=== PATIENT | male | born 1975 | race Two or more races ===

== ENCOUNTER 2016-12-22 08:24 | Emergency (ER) | payer SELFPAY ==
[2016-12-22] MEDS ORDERED: KETOROLAC TROMETHAMINE 60 MG/2 ML VIAL ONE (08:40)
--- NOTE | 2016-12-22 09:16 | RAD ---
12/22/2016 9:12 AM CHEST - 2 VIEWS History: Rib pain without injury. Comparison: None Findings: Two views of the chest are obtained. The lungs demonstrate a small nodular focus within the left mid to lower lung, midclavicular line. This projects between the seventh and eighth posterior rib. Findings likely relate to a calcified granuloma though other entities are possible. The cardiomediastinal silhouette is unremarkable.. The osseous structures are intact.. IMPRESSION: Nodular density likely representing a calcified granuloma. Exam is otherwise unremarkable.
== END 2016-12-22 09:27 | disposition home or self-care (01) ==
LOC: ED 08:24
DX: R07.89 Other chest pain (principal); I51.7 Cardiomegaly; I10 Essential (primary) hypertension